=== PATIENT | female | born 1985 | race Two or more races ===

== ENCOUNTER 2022-10-28 11:02 | Emergency (ER) | payer MEDICAID, OTHER ==
[~2022-10-28] VITALS: Ht 175.3 cm; Wt 93.0 kg
[2022-10-28] MEDS ORDERED: PROMETHAZINE HCL 25 MG/ML 1ML IM ONE (12:30)
[2022-10-28] MEDS ORDERED: MEPERIDINE HCL (50 MG/ML) 1 ML VIAL IM ONE (12:30)
[2022-10-28 13:15] VITALS: BP 126/72
[2022-10-28] MEDS ORDERED: TRAM-297 PO (14:39)
[2022-10-28] MEDS ORDERED: PRED20TA2 PO (14:39)
== END 2022-10-28 14:47 | disposition home or self-care (01) ==
LOC: ER 11:02 → EDBD 11:02 → ER 14:47
DX: G89.29 Other chronic pain (principal); M54.50 Low back pain, unspecified; N20.0 Calculus of kidney; Z88.0 Allergy status to penicillin; Z88.2 Allergy status to sulfonamides; Z90.49 Acquired absence of other specified parts of digestive tract; X50.1XXA Overexertion from prolonged static or awkward postures, initial encounter; Y93.89 Activity, other specified; Y92.89 Other specified places as the place of occurrence of the external cause; Y99.8 Other external cause status
CPT/HCPCS: 72131; 96372; 99284; J2175; J2550

== ENCOUNTER 2023-04-05 12:15 | Emergency (ER) | payer BC, MEDICAID ==
[~2023-04-05] VITALS: Ht 172.7 cm; Wt 86.3 kg
[~2023-04-05 12:15] MED LIST: PRED20TA2 PO; TRAM-297 PO
[2023-04-05 12:59] LABS: Basophils # (auto) 0 10 ^3/uL (0-0.2); Basophils % (auto) 0.4 % (0.0-2.0); Eosinophils # (auto) 0 10 ^3/uL (0-0.8); Eosinophils % (auto) 0.3 % (0.0-7.0); Hemoglobin 12.8 g/dL (12.2-16.2); Mean Corpuscular Hemoglobin 26.9 pg (28.0-32.0); Monocytes # (auto) 0.4 10 ^3/uL (0-1.3); Neutrophils # (auto) 7.7 10 ^3/uL (1.6-8.6); Nucleated Red Blood Cells % 0.1 %; White Blood Cell 10.5 10^3/uL (4.4-10.8)
[2023-04-05 13:01] LABS: Hematocrit 38.1 % (36.0-46.0); Lymphocytes # (auto) 2.4 10 ^3/uL (0.4-5.4); Lymphocytes % (auto) 22.6 % (10.0-50.0); Mean Corpuscular Hgb Conc. 33.7 g/dL (32.0-36.0); Mean Corpuscular Volume 79.9 fL (80.0-100.0); Monocytes % (auto) 3.8 % (0.0-12.0); Neutrophils % (auto) 72.9 % (37.0-80.0); Red Blood Cells 4.77 10^6/uL (4.0-5.20); Red Cell Distribution Width 13.9 % (11.8-14.3)
[2023-04-05] MEDS ORDERED: KETOROLAC TROMETH 30 MG/ML 1ML VIAL IV ONE (14:45)
[2023-04-05] MEDS ORDERED: SODIUM CHLORIDE 0.9% 1,000 ML IV ONE (14:45)
[2023-04-05 14:59] LABS: BUN/Creatinine Ratio 12.5 (10.0-20.0); Calcium 8.4 mg/dL (8.5-10.1); Potassium 3.1 mmol/L (3.5-5.1)
[2023-04-05 15:02] VITALS: BP 150/76
[2023-04-05] MEDS ORDERED: POTASSIUM CHL 20 Meq TABLET PO ONE (15:45)
[2023-04-05] MEDS ORDERED: MECL1TAB42 PO (15:59)
== END 2023-04-05 15:58 | disposition home or self-care (01) ==
LOC: ER 12:15 → EDBD 12:15 → ER 15:58
DX: R42 Dizziness and giddiness (principal); R51.9 Headache, unspecified; K62.5 Hemorrhage of anus and rectum; G89.29 Other chronic pain; F41.9 Anxiety disorder, unspecified; Z88.0 Allergy status to penicillin; Z88.2 Allergy status to sulfonamides
CPT/HCPCS: 36415; 70450; 80048; 84702; 85025; 93005; 96374; 99285; J1885; J7030